=== PATIENT | female | born 1965 | race Caucasian/White ===

== ENCOUNTER 2017-02-02 08:20 | Inpatient (IN) ==
[2017-02-02] MEDS ORDERED: SODIUM CHLORIDE 0.9% 1,000 ML IV STA (09:33)
[2017-02-02 09:42] LABS: Basophils # 0.1 10*3/uL (0.0-0.2); Basophils % 0.3 % (0.0-0.8); Eosinophils % 0.1 % (0.00-10.9); Hemoglobin 10.9 GM/DL (12.0-16.0); Immature Granulocytes % 0.8 %; Immature Granulocytes Absolute 0.15 #; Lymphocytes # 2.9 10*3/uL (1.4-4.0); Lymphocytes % 15.4 % (21.3-54.2); Mean Corpuscular HGB Conc 34.1 GM/DL (32-36); Mean Corpuscular Hemoglobin 33 PG (27-34); Mean Corpuscular Volume 97.6 FL (87-102); Mean Platelet Volume 11.1 FL (9.6-12.0); Monocytes # 1.6 10*3/uL (0.11-0.8); Monocytes % 8.7 % (1.7-12.7); Neutrophils % 74.7 % (38.7-73.9); Platelet Count 432 T/CUMM (130-400); Red Blood Count 3.28 MC/CUMM (3.8-5.5); Red Cell Distribution Width 13.3 % (9.3-17.3); White Blood Count 18.8 T/CUMM (4-12)
[2017-02-02 09:59] LABS: PT Patient Result 87.7 SECS
[2017-02-02 10:01] LABS: INR 7.3
[2017-02-02 10:22] LABS: Albumin 3.2 G/DL (3.4-5.0); Bilirubin,Total 0.6 MG/DL (0.2-1.0); Magnesium 2.3 MG/DL (1.8-2.4); Osmolality,Calculated 269.4 MOS/KG (273-304); Potassium 4.1 MMOL/L (3.5-5.1); Total Protein 6.6 G/DL (6.4-8.3)
--- NOTE | 2017-02-02 10:40 | XRay Report ---
Two-view right shoulder February 02, 2017 0956 hours Indication: Fall with pain Comparison images not available Findings: Multiple overriding right-sided rib fractures. No visualized pneumothorax. The scapula is slightly rotated and slightly malpositioned with the posterior chest wall. Acromioclavicular and glenohumeral alignment is preserved. Impression: 1. Multiple right-sided rib fractures with no demonstratable pneumothorax 2. Findings concerning for scapular disassociation. PROCEDURE INTERPRETED AT [facility] DEPARTMENT OF RADIOLOGY Final Report Signed by: Sesar Vuong
--- NOTE | 2017-02-02 10:44 | XRay Report ---
Two-view right scapula February 02, 2017 at 1000 hours Comparison images not available Findings: There is increased scapulothoracic distance suggesting scapholunate disassociation. Multiple overriding right-sided rib fractures. Small subpleural hematoma. No pneumothorax. Impression: 1. Multiple right-sided rib fractures with subpleural hematoma 2. Appearance to suggest scapular disassociation. PROCEDURE INTERPRETED AT [facility] DEPARTMENT OF RADIOLOGY Final Report Signed by: Sesar Vuong
[2017-02-02] MEDS ORDERED: PHYTONADIONE 5 MG TABLET PO ONE ×2 (11:00→16:22)
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
[2017-02-02] MEDS ORDERED: ACETAMINOPHEN 325 MG TABLET PO PRN (12:12)
[2017-02-02] MEDS ORDERED: MORPHINE 2 MG/1 ML SYRINGE IV PRN (12:12)
[2017-02-02] MEDS ORDERED: ONDANSETRON 4 MG/2 ML VIAL IV PRN (12:12)
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
[2017-02-02] MEDS: SODIUM CHLORIDE 0.9% 1,000 ML IV SCH ×2 (13:40→22:04)
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
[2017-02-02 14:52] LABS: Apearance,Urine Slightly Hazy (Clear); Bilirubin,Urine Negative (Negative); Blood, Urine Negative (Negative); Glucose,Urine (UA) Negative (Negative); Hyaline Casts,Urine 30 /LPF (0-3); Ketones,Urine 20 mg/dL (Negative); Mucus,Urine Few /LPF (Occasional); Nitrite,Urine Negative (Negative); Protein,Urine 30 MG/DL; RBC,Urine 3 /HPF (0-4); Squamous Epithelial Cell,Urine Occasional /HPF (0-10); Urine Color Yellow (Yellow); Urine Specific Gravity 1.031 (1.001-1.035); Urine Urobilinogen < 2.0 EU/DL (0.2-1.0); WBC,Urine 6 /HPF (0-6)
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
[2017-02-02] MEDS ORDERED: SODIUM CHLORIDE 0.9% 250 ML IV PRN ×2 (16:22→17:27)
[2017-02-02] MEDS ORDERED: MORPHINE 2 MG/1 ML SYRINGE IV SCH (17:00)
[2017-02-02 17:12] LABS: Hematocrit 22.8 VOL% (35.7-47.0)
[2017-02-02 17:13] LABS: Hemoglobin 7.9 GM/DL (12.0-16.0)
[2017-02-02] MEDS ORDERED: NALOXONE 0.4 MG/ML VIAL IV PRN (19:15)
[2017-02-02] MEDS ORDERED: MORPHINE 2 MG/1 ML SYRINGE IV ONE (19:16)
[2017-02-02] MEDS: MORPHINE PCA 30 MG/30 ML SYRINGE IV SCH (20:00)
[2017-02-03] MEDS: MORPHINE PCA 30 MG/30 ML SYRINGE IV SCH ×3 (02:18→22:25)
[2017-02-03] MEDS ORDERED: KETOROLAC 30 MG/1 ML VIAL IV ONE ×2 (04:37→04:45)
[2017-02-03 05:23] LABS: Basophils # 0.1 10*3/uL (0.0-0.2); Basophils % 0.4 % (0.0-0.8); Eosinophils % 0.2 % (0.00-10.9); Hematocrit 29.3 VOL% (35.7-47.0); Immature Granulocytes % 0.7 %; Immature Granulocytes Absolute 0.09 #; Lymphocytes # 2.4 10*3/uL (1.4-4.0); Lymphocytes % 19.6 % (21.3-54.2); Mean Corpuscular HGB Conc 33.1 GM/DL (32-36); Mean Corpuscular Hemoglobin 31 PG (27-34); Monocytes # 1.3 10*3/uL (0.11-0.8); Monocytes % 10.4 % (1.7-12.7); Neutrophils # 8.5 10*3/uL (1.4-7.4); Neutrophils % 68.7 % (38.7-73.9); Red Blood Count 3.15 MC/CUMM (3.8-5.5); Red Cell Distribution Width 15.5 % (9.3-17.3)
[2017-02-03 05:36] LABS: White Blood Count 12.4 T/CUMM (4-12)
[2017-02-03] MEDS: SODIUM CHLORIDE 0.9% 1,000 ML IV SCH ×3 (05:36→21:11)
[2017-02-03 05:37] LABS: Hemoglobin 9.7 GM/DL (12.0-16.0); Platelet Count 228 T/CUMM (130-400)
[2017-02-03 06:05] LABS: Albumin 2.3 G/DL (3.4-5.0); Bilirubin,Total 0.6 MG/DL (0.2-1.0); Magnesium 2.2 MG/DL (1.8-2.4); Osmolality,Calculated 274.5 MOS/KG (273-304); Potassium 4.4 MMOL/L (3.5-5.1); Total Protein 4.9 G/DL (6.4-8.3)
[2017-02-03] MEDS ORDERED: FAMOTIDINE 20 MG TABLET PO ONE (07:43)
[2017-02-03] MEDS ORDERED: DIAZEPAM 5 MG TABLET PO ONE (07:43)
--- NOTE | 2017-02-03 08:55 | Hospitalist Progress Note ---
Assessment and Plan (1) Coumadin toxicity Status: Acute Assessment and plan: Impression: 1. Warfarin toxicity 2. Right chest wall hematoma 3. Recent DVT and pulmonary embolism Plan: The patient's coagulopathy has been adequately corrected. She is going to surgery later this morning. We will resume warfarin when cleared by surgery. This note was completed using [employer] voice recognition software. There may be corrugated box machine operator errors as a result. Current Visit: Yes Qualifiers: Encounter type: initial encounter Injury intent: accidental or unintentional Qualified Code(s): T45.511A - Poisoning by anticoagulants, accidental (unintentional), initial encounter Hospitalist: Subjective Interval history: Follow-up chest wall hematoma. The patient received a couple units of red cells yesterday. She says that she feels better. She is scheduled for drainage of the hematoma later today. INR has corrected down to 2 with the plasma and vitamin K. Exam - Constitutional Vitals: Period Temp Pulse Resp BP Sys/Yu Pulse Ox Last 24 Hr 97.6 F-99.0 F 79-104 12-28 83-131/42-87 93-100 Vital signs are noted above. Heart is regular with no murmur. Chest is clear. Chest wall is unchanged with displacement of the right scapula by the hematoma. She is awake and alert. Results - Labs CBC & BMP: 02/03/17 07:14 02/03/17 04:24 Lab Results: I have reviewed the past 24 hour labs Quality Measures - VTE Contraindication to Pharmacological VTE Prophylaxis: Coagulopathy
[2017-02-03] MEDS ORDERED: LIDOCAINE 1%/EPI INJ 20 ML VIAL ONE (09:19)
[2017-02-03] MEDS ORDERED: BUPIVACAINE MPF 0.25% /EPI 30 ML VIAL ONE (09:19)
[2017-02-03] MEDS ORDERED: CIPROFLOXACIN 400 MG/200 ML PREMIX IV ONE (10:17)
--- NOTE | 2017-02-03 10:45 | Operative Note ---
Date of procedure: 02/03/17 Pre-op diagnosis: Large submuscular hematoma right chest wall Post-op diagnosis: same Procedure: Evacuation of large 15 cm submuscular right chest wall hematoma Findings and technique: After informed consent was obtained patient was brought the operating room and placed in supine position. After successful induction of general anesthesia the patient was turned in a lateral position in her right chest and back were prepped and draped in usual sterile fashion. Her scapula tip was marked with a marking pen. I correlated the findings on physical exam with her chest CT to localize the site of her hematoma. I felt that her hematoma would be the most superficially located just inferior and medial to the tip of her scapula. Local anesthesia was infiltrated at this point and a small transverse incision made. I gently spread with a hemostat through the muscle fibers and entered a large hematoma cavity which consisted of non- clotted and clotted blood. Most of the blood within this hematoma was unilocular and clotted. With the suction cannula in place I removed a couple 100 cc of liquid blood. I then inserted my finger to break up clots and also used ring forceps to extract clot manually. I removed 500 cc of liquid blood and clots and did not want to try to get every last bit out because some of this and dissected within muscle and subcutaneous tissue. The mass-effect along her chest wall was greatly diminished following this. This cavity was irrigated with sterile saline. I could not identify any active bleeding. I elected not to place a drain in the space. I had also elected not to fully reverse the anticoagulation of this patient who had recently been diagnosed with pulmonary emboli. The incision in the back was closed with interrupted 3- 0 nylon suture. She appeared to tolerate the procedure well. Anesthesia: YFN, local Surgeon / Physician: Gilles Ca III. Estimated blood loss: minimal Specimens: none sent Condition: stable Disposition: PACU Results - Labs CBC & BMP: 02/03/17 07:14 02/03/17 04:24 Discharge Plan - Discharge Medications No Action FLUoxetine [PROzac] 40 mg PO DAILY oxyCODONE/ACETAMINOPHEN 5-325 [Percocet 5-325] 1 tablet PO Q6H PRN PRN Reason: Abdominal Pain Gabapentin Cap/Tab [Neurontin Cap/Tab] 100 mg PO TID Warfarin [Coumadin] 4 mg PO DAILY@1800 Pantoprazole Tab [Protonix Tab] 1 tablet PO DAILY - Follow Up or Referral - Forms/Instructions
[2017-02-03] MEDS ORDERED: PHENYLEPHRINE 1 MG/10 ML SYRINGE IV ONE (11:00)
--- NOTE | 2017-02-03 11:02 | Anesthesia Post-Op ---
Anesthesia Post OP - Post Ansesthetic Evaluation Patient seen in post op: Yes Resp: within normal limits CV: within normal limits Mental: within normal limits Temp: within normal limits [id number]: within normal limits Nausea and Vomiting: within normal limits Pain: within normal limits
[2017-02-03] MEDS ORDERED: MIDAZOLAM 2 MG/2 ML VIAL ONE (11:04)
[2017-02-03] MEDS ORDERED: PROPOFOL 200 MG/20 ML VIAL IV ONE (11:04)
[2017-02-03] MEDS ORDERED: SEVOFLURANE 1 UNIT/15 MINUTE INH ONE (11:05)
[2017-02-03] MEDS ORDERED: GLYCOPYRROLATE 0.4 MG/2 ML VIAL ONE (11:05)
[2017-02-03] MEDS ORDERED: ONDANSETRON 4 MG/2 ML VIAL ONE (11:05)
[2017-02-03] MEDS ORDERED: fentaNYL 100 MCG/2 ML VIAL ONE (11:05)
--- NOTE | 2017-02-03 14:31 | Event Note ---
The patient had about 500 mL of blood removed from her chest. She feels much better. Blood pressure is adequate. Oxygenation is adequate. Pain control is adequate. I think we can move her out to a room. Recheck INR in the a.m. Continue to monitor serial hemoglobin/hematocrit. She will need to resume her warfarin at some point when cleared by surgery.
[2017-02-03] MEDS: PANTOPRAZOLE 40 MG TABLET PO SCH (14:38)
[2017-02-03] MEDS: GABAPENTIN 100 MG CAPSULE PO SCH ×2 (14:42→20:15)
--- NOTE | 2017-02-03 16:33 | Event Note ---
She feels much better. She has much better pain control and is pleased with her result. I will follow with you but she may be ready for discharge soon from my standpoint.
[2017-02-04] MEDS: SODIUM CHLORIDE 0.9% 1,000 ML IV SCH ×3 (05:22→21:19)
[2017-02-04 05:43] LABS: INR 1.1; PT Patient Result 11.5 SECS
--- NOTE | 2017-02-04 08:27 | Event Note ---
She feels well. She is a little tachycardic. She does not have the pain and fullness that she had before and I cannot appreciate reaccumulation of her hematoma on exam. Her hematocrit has dropped down into the low 20s. With her tachycardia she may benefit from transfusion. Her INR is normalized. I am hesitant to recommend anticoagulation with her dropping hematocrit.
[2017-02-04] MEDS: GABAPENTIN 100 MG CAPSULE PO SCH ×3 (08:54→21:18)
[2017-02-04] MEDS: FLUoxetine 20 MG CAPSULE PO SCH (08:54)
[2017-02-04] MEDS: PANTOPRAZOLE 40 MG TABLET PO SCH (08:54)
[2017-02-04] MEDS: MORPHINE PCA 30 MG/30 ML SYRINGE IV SCH ×2 (10:51→17:49)
[2017-02-04] MEDS ORDERED: SODIUM CHLORIDE 0.9% 250 ML IV PRN ×2 (13:36→13:57)
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
--- NOTE | 2017-02-04 15:42 | Ultrasound Report ---
Indication: History of pulmonary emboli Duplex scan of the bilateral lower extremity veins Technique: Duplex scan of the bilateral lower extremity veins using B-mode/grayscale imaging and Doppler spectral analysis and color flow Findings: Major venous structures of the left lower extremity demonstrate a normal course and caliber. There is no evidence of deep vein thrombosis. No abnormal intrinsic echogenic lesions are demonstrated in the scanned blood vessels. Veins demonstrate good compressibility with normal color flow study and spectral analysis. There is noncompressible thrombus within the right popliteal vein, which is small and short segment. Otherwise, within the right lower extremity, the major venous structures demonstrated normal course and caliber with normal compressibility, color flow and spectral analysis. Otherwise, no abnormal intrinsic echogenic lesions are demonstrated in the scanned blood vessels. Impression: Short segment noncompressible thrombus within the right popliteal vein. Unremarkable duplex imaging of the left lower extremity veins. No evidence of DVT PROCEDURE INTERPRETED AT [facility] DEPARTMENT OF RADIOLOGY Final Report Signed by: Antione Madrid
--- NOTE | 2017-02-04 16:10 | Physician Query Form ---
CLICK EDIT DOCUMENT TO SELECT QUERY ANSWER --> OK --> SIGN Yvonne Baez RN Clinical Quality Director W) [phone] (f) [phone] [email or web address] PROVIDERS: Make your selection(s) from the choices in EACH section by typing an "x" and enter comments in the comment section. Please use your independent medical judgment in providing your response. This request does not imply that any particular answer is desired or expected. CLINICAL INDICATORS: (Providers should not edit this section) Based on documentation of "Acute coumadin toxicity" INR on admission of 7.3. "Acute hematoma of right chest wall" Surgical evacuation of hematoma to right chest wall performed "removed 500 cc of liquid blood and clots and did not want to try to get every last bit out because some of this and dissected within muscle and subcutaneous tissue" Transfused 2units PRBC, 1unit FFP Based on the above, could you clarify the appropriate diagnosis, if significant , that supports the above abnormalities and additional evaluation, monitoring, and/or treatment rendered: ( x) Bleeding disorder due to extrinsic circulating anticoagulants ( ) Bleeding disorder NOT due to extrinsic circulating anticoagulants ( ) Other, please specify: ( ) Clinically unable to determine COMMENTS: PLEASE ALSO DOCUMENT RESPONSE IN PROGRESS NOTES AND/OR DISCHARGE SUMMARY Use of terms such as suspected, likely, or probable (associated with a specific diagnosis that is being evaluated, monitored, or treated as if it exists) are acceptable and can be restated in the discharge summary if not ruled out. MTDD
--- NOTE | 2017-02-04 16:13 | Physician Query Form ---
CLICK EDIT DOCUMENT TO SELECT QUERY ANSWER --> OK --> SIGN Yvonne Baez RN Clinical Assigner W) [phone] (f) [phone] [email or web address] PROVIDERS: Make your selection(s) from the choices in EACH section by typing an "x" and enter comments in the comment section. Please use your independent medical judgment in providing your response. This request does not imply that any particular answer is desired or expected. CLINICAL INDICATORS: (Providers should not edit this section) Based on documentation of "Acute coumadin toxicity" INR on admission of 7.3. HH of 7.9/22.8. "Acute hematoma of right chest wall" Surgical evacuation of hematoma to right chest wall performed "removed 500 cc of liquid blood and clots " Transfused 2 units PRBC and 1 unit FFP Based on the above, could you clarify which of the following conditions you are evaluating, treating, and/or monitoring? ( x) Blood loss anemia (x ) acute ( ) chronic ( ) acute on chronic ( ) Acute blood loss anemia on baseline chronic anemia ( ) Acute blood loss anemia as a complication of a procedure ( ) Hemolytic anemia ( ) immune ( ) non-immune - please specify cause: ( ) Anemia due to other condition, please specify: ( ) Clinically unable to determine COMMENTS: PLEASE ALSO DOCUMENT RESPONSE IN PROGRESS NOTES AND/OR DISCHARGE SUMMARY Use of terms such as suspected, likely, or probable (associated with a specific diagnosis that is being evaluated, monitored, or treated as if it exists) are acceptable and can be restated in the discharge summary if not ruled out. MTDD
--- NOTE | 2017-02-04 16:26 | IR History and Physical Update ---
IR Pre-Procedure - History and Physical H&P was reviewed, the patient examined and there: are no changes in the patients condition since last H&P was completed. Reason for procedure:: h/o PE and small right popliteal DVT with bleeding (cant anticoagulate now) - Dictation Physical: refer to H&P completed by admitting physician - Physical Exam Vital Signs: Last Vital Signs Temp 99 F 02/04/17 14:45 Pulse 106 H 02/04/17 15:30 Resp 18 02/04/17 15:30 BP 116/77 02/04/17 15:30 Pulse Ox 97 02/04/17 15:30 Mental Status: alert and oriented Heart: regular rate and rhythm Lung: clear to auscultation Abdomen: within normal limits - Sedation IR anesthesia plan for sedation: none ASA Class: II Airway Assessment: Class II: Soft palate, uvula, fauces visible - Risks Risks: Procedures explained. Risks discussed include, but not limited to, the following:[ bleeding, injury to vessels and adjacent structures, Filter malposition, need to remove filter in the future] All questions answered. The following alternatives were discussed:[ none] Risks and benefits discussed with: patient Consent obtained from: patient Assessment and Plan - Time spent with patient Time spent with patient: Less than 30 minutes
--- NOTE | 2017-02-04 17:54 | Event Note ---
I had a brief discussion with the patient about the pros and cons of IVC filter placement, risks of the procedure, her non-NPO status and whether or not it needed to be done this afternoon (emergently) or next week. After that discussion, I felt like the patient was nervous/uncomfortable about waiting over the weekend. Therefore, I talked with the patient's nurse and made the decision to quickly get the IR team ready to get this procedure done today - with the hope of putting the patient at ease about her DVT/PE issues. Reportedly after leaving the patient's room, however, the patient became anxious and refused the procedure. I am not sure what caused this, but I did personally talk with the patient about it. This patient can have the IVC filter placement Tuesday or any day next week. It does not need to be done over the weekend or emergently. I also discussed this with the patient's nurse and the attending, Dr. Cabezas.
[2017-02-04 21:22] LABS: Hematocrit 27.7 VOL% (35.7-47.0); Hemoglobin 9.5 GM/DL (12.0-16.0)
[2017-02-05 03:48] LABS: Basophils % 0.5 % (0.0-0.8); Eosinophils # 0.5 10*3/uL (0.0-0.87); Eosinophils % 6.6 % (0.00-10.9); Hematocrit 27.9 VOL% (35.7-47.0); Hemoglobin 9.4 GM/DL (12.0-16.0); Immature Granulocytes % 0.3 %; Immature Granulocytes Absolute 0.02 #; Lymphocytes # 2.1 10*3/uL (1.4-4.0); Lymphocytes % 27.4 % (21.3-54.2); Mean Corpuscular HGB Conc 33.7 GM/DL (32-36); Mean Corpuscular Hemoglobin 31 PG (27-34); Mean Corpuscular Volume 90.9 FL (87-102); Monocytes # 0.8 10*3/uL (0.11-0.8); Neutrophils # 4.2 10*3/uL (1.4-7.4); Neutrophils % 55.2 % (38.7-73.9); Platelet Count 222 T/CUMM (130-400); Red Blood Count 3.07 MC/CUMM (3.8-5.5); Red Cell Distribution Width 15.6 % (9.3-17.3); White Blood Count 7.6 T/CUMM (4-12)
[2017-02-05 04:03] LABS: PT Patient Result 10.4 SECS
[2017-02-05 04:24] LABS: Calcium 7.8 MG/DL (8.5-10.1)
[2017-02-05 04:25] LABS: Potassium 3.5 MMOL/L (3.5-5.1)
[2017-02-05] MEDS: SODIUM CHLORIDE 0.9% 1,000 ML IV SCH (06:43)
[2017-02-05] MEDS: MORPHINE PCA 30 MG/30 ML SYRINGE IV SCH (06:54)
--- NOTE | 2017-02-05 08:19 | Event Note ---
She feels well. She has no signs of reaccumulation of her hematoma. She has extensive ecchymosis entire right side of her chest flank. Hematocrit is appropriate morning. He apparently discussed vena cava filter placement with interventional radiology and elected not to do this. I will leave anticoagulation up to you. I think that she had her bleed because of Coumadin toxicity. I do not know that this would have occurred if she has been more appropriate INR. I would be okay if you want to try another attempt at anticoagulation.
[2017-02-05] MEDS: GABAPENTIN 100 MG CAPSULE PO SCH ×3 (08:51→21:31)
[2017-02-05] MEDS: FLUoxetine 20 MG CAPSULE PO SCH (08:52)
[2017-02-05] MEDS: PANTOPRAZOLE 40 MG TABLET PO SCH (08:52)
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
[2017-02-05] MEDS ORDERED: NICOTINE 21 MG/24 HR PATCH TRANSDERM PRN (11:31)
[2017-02-05] MEDS: APIXABAN 5 MG TABLET PO SCH ×2 (12:13→21:31)
[2017-02-05] MEDS: HYDROmorphone 2 MG/1 ML VIAL IV PRN ×3 (12:57→22:38)
[2017-02-06 03:36] LABS: Hematocrit 29.8 VOL% (35.7-47.0); Hemoglobin 10.3 GM/DL (12.0-16.0)
[2017-02-06] MEDS: HYDROmorphone 2 MG/1 ML VIAL IV PRN (05:30)
[2017-02-06] MEDS: GABAPENTIN 100 MG CAPSULE PO SCH (08:32)
[2017-02-06] MEDS: PANTOPRAZOLE 40 MG TABLET PO SCH (08:32)
[2017-02-06] MEDS: FLUoxetine 20 MG CAPSULE PO SCH (08:32)
[2017-02-06] MEDS: APIXABAN 5 MG TABLET PO SCH (08:33)
[2017-02-06 08:35] VITALS: BP 125/81
--- NOTE | 2017-02-06 10:31 | Event Note ---
I saw the patient earlier this morning. She had no complaints of shoulder pain or feeling like her hematoma had recurred. She is doing well and I will leave discharge and anticoagulation up to the medical service. I need to see her back in my clinic in the next week or so for suture removal.
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
== END 2017-02-06 12:15 | disposition home or self-care (01) | DRG 988 ==
LOC: N.ED 08:20 → SUATTDRO 11:02 → N.EDINP 11:02 → N.CC 11:27 → N.3E 02-03 19:25
PROVIDERS: ADMIT Internal Medicine Geriatric Medicine; ATTEND Family Medicine

== ENCOUNTER 2020-01-28 18:03 | Observation (INO) ==
[2020-01-28] MEDS ORDERED: HYDROmorphone 2 MG/1 ML VIAL IV STA ×2 (18:19→18:26)
[2020-01-28] MEDS ORDERED: HYDROmorphone 2 MG/1 ML VIAL ONE (18:19)
[2020-01-28] MEDS ORDERED: LACTATED RINGERS 1,000 ML IV STA (18:26)
[2020-01-28] MEDS ORDERED: DIPHTHERIA/TETANUS ADULT VACCINE 0.5 ML SYRINGE IM ONE (18:26)
[2020-01-28] MEDS ORDERED: ONDANSETRON 4 MG/2 ML VIAL IV STA (18:26)
[2020-01-28 18:39] LABS: Basophils # 0.1 10*3/uL (0.0-0.2); Basophils % 0.6 % (0.0-0.8); Eosinophils # 0.4 10*3/uL (0.0-0.87); Eosinophils % 2.9 % (0.00-10.9); Hematocrit 41.2 VOL% (35.7-47.0); Hemoglobin 13.6 GM/DL (12.0-16.0); Immature Granulocytes % 0.6 %; Immature Granulocytes Absolute 0.09 #; Lymphocytes # 6.6 10*3/uL (1.4-4.0); Lymphocytes % 44.1 % (21.3-54.2); Mean Corpuscular Volume 98.1 FL (87-102); Mean Platelet Volume 11.1 FL (9.6-12.0); Monocytes % 5.7 % (1.7-12.7); Neutrophils % 46.1 % (38.7-73.9); Platelet Count 269 T/CUMM (130-400); Red Cell Distribution Width 12.1 % (9.3-17.3); White Blood Count 15.1 T/CUMM (4-12)
[2020-01-28] MEDS ORDERED: DIPH/TET/ACEL PERT BOOSTER VACCINE 0.5 ML VIAL IM ONE (18:48)
[2020-01-28 18:54] LABS: Alanine Aminotransferase 23 U/L (13-56); Albumin 3.9 G/DL (3.4-5.0); Alkaline Phosphatase 76 U/L (45-117); Amylase 43 U/L (25-115); Aspartate Amino Transferase 23 U/L (0-37); Blood Urea Nitrogen 8 MG/DL (7-18); Calcium 9.5 MG/DL (8.5-10.1); Estimated Glom Filtration Rate 73 ML/MIN; Glucose 109 MG/DL (74-106); Osmolality,Calculated 275.5 MOS/KG (273-304); Total Protein 7.1 G/DL (6.4-8.3)
[2020-01-28] MEDS ORDERED: ONDANSETRON 4 MG/2 ML VIAL IV PRN (19:00)
[2020-01-28] MEDS ORDERED: ACETAMINOPHEN 325 MG TABLET PO PRN (19:00)
[2020-01-28 19:07] LABS: PT Patient Result 11.1 SECS (9.8-11.9); Partial Thromboplastin Time 23.9 SECS (23.9-33.8)
[2020-01-28 19:16] LABS: Eosinophils 5 % (0-10); Hypochromasia 2+; Lymphocytes 41 % (20-55); Macrocytosis 1+; Platelet Estimate Normal; Reactive Lymphocytes 1+; Segmented Neutrophils 49 % (50-85); Total Cells Counted 100
[2020-01-28 19:16] LABS: Apearance,Urine CLEAR (Clear); Bilirubin,Urine Negative (Negative); Blood, Urine Negative (Negative); Glucose,Urine (UA) Negative (Negative); Ketones,Urine Negative (Negative); Nitrite,Urine Negative (Negative); Protein,Urine Negative; RBC,Urine 2 /HPF (0-4); Urine Color Straw (Yellow); Urine Specific Gravity 1.025 (1.001-1.035); Urine Urobilinogen < 2.0 EU/DL (0.2-1.0); WBC,Urine <1 /HPF (0-6)
[2020-01-28 19:29] LABS: Barbiturates Screen,Urine Negative (Negative); Benzodiazepines Screen,Urine Negative (Negative); Cannabinoid Screen,Urine Negative (Negative); Opiate Screen,Urine Positive (Negative); Phencyclidine Screen,Urine Negative (Negative)
[2020-01-28] MEDS: MORPHINE 4 MG/1 ML VIAL IV PRN ×2 (19:45→23:46)
[2020-01-28] MEDS: DEXTROSE 5% NACL 0.45% 1,000 ML IV SCH (22:20)
[2020-01-29] MEDS ORDERED: NALOXONE 0.4 MG/ML VIAL IV PRN (00:26)
[2020-01-29] MEDS: HYDROmorphone PCA 30 MG/30 ML SYRINGE IV SCH (00:51)
[2020-01-29 00:55] LABS: Basophils # 0.1 10*3/uL (0.0-0.2); Basophils % 0.3 % (0.0-0.8); Eosinophils # 0.1 10*3/uL (0.0-0.87); Eosinophils % 0.6 % (0.00-10.9); Hematocrit 37.5 VOL% (35.7-47.0); Immature Granulocytes % 0.5 %; Immature Granulocytes Absolute 0.08 #; Lymphocytes # 4.1 10*3/uL (1.4-4.0); Lymphocytes % 26.2 % (21.3-54.2); Mean Corpuscular HGB Conc 34.7 GM/DL (32-36); Mean Corpuscular Volume 94.7 FL (87-102); Mean Platelet Volume 9.9 FL (9.6-12.0); Monocytes % 7.9 % (1.7-12.7); Neutrophils % 64.5 % (38.7-73.9); Platelet Count 305 T/CUMM (130-400); Red Blood Count 3.96 MC/CUMM (3.8-5.5); Red Cell Distribution Width 11.9 % (9.3-17.3); White Blood Count 15.6 T/CUMM (4-12)
[2020-01-29 01:16] LABS: Calcium 8.9 MG/DL (8.5-10.1); Osmolality,Calculated 275.5 MOS/KG (273-304)
[2020-01-29 02:04] LABS: Platelet Estimate Normal
[2020-01-29] MEDS: DEXTROSE 5% NACL 0.45% 1,000 ML IV SCH (06:39)
[2020-01-29] MEDS ORDERED: CLINDAMYCIN INJ 900 MG in PREMIX 1 EACH IV ONE (09:02)
[2020-01-29] MEDS ORDERED: LIDOCAINE 1% 5 ML VIAL ONE (09:31)
[2020-01-29] MEDS ORDERED: DEXAMETHASONE 4 MG/1 ML VIAL ONE ×2 (09:31→12:55)
[2020-01-29] MEDS ORDERED: ROPIVACAINE 0.5% 30 ML VIAL ONE ×2 (09:31→10:24)
[2020-01-29] MEDS ORDERED: BACITRACIN OINT 0.9 GM PACK TOP ONE (09:44)
[2020-01-29] MEDS: PANTOPRAZOLE 40 MG VIAL IV SCH (09:55)
[2020-01-29] MEDS ORDERED: ALBUTEROL INHALER 18 GM INH ONE (11:40)
[2020-01-29] MEDS ORDERED: MAGNESIUM HYDROXIDE SUSP 30 ML UDCUP PO PRN (11:59)
[2020-01-29] MEDS ORDERED: propofoL 200 MG/20 ML VIAL IV ONE (12:54)
[2020-01-29] MEDS ORDERED: LIDOCAINE 2% 5 ML VIAL ONE (12:54)
[2020-01-29] MEDS ORDERED: SEVOFLURANE 1 UNIT/15 MINUTE INH ONE (12:54)
[2020-01-29] MEDS ORDERED: MIDAZOLAM 2 MG/2 ML VIAL ONE (12:54)
[2020-01-29] MEDS ORDERED: GLYCOPYRROLATE 0.4 MG/2 ML VIAL ONE (12:55)
[2020-01-29] MEDS ORDERED: fentaNYL 100 MCG/2 ML VIAL ONE (12:55)
[2020-01-29] MEDS ORDERED: ONDANSETRON 4 MG/2 ML VIAL ONE (12:55)
[2020-01-29] MEDS ORDERED: ROCURONIUM 100 MG/10 ML VIAL IV ONE (12:55)
[2020-01-29] MEDS ORDERED: SUCCINYLCHOLINE 200 MG/10 ML VIAL ONE (12:55)
[2020-01-29] MEDS ORDERED: PHENYLEPHRINE 1 MG/10 ML SYRINGE IV ONE (12:55)
[2020-01-29] MEDS: LEVOFLOXACIN INJ 500 MG in PREMIX 1 EACH IV SCH (14:30)
[2020-01-29] MEDS: metroNIDAZOLE INJ 500 MG in PREMIX 1 EACH IV SCH ×2 (15:49→23:16)
[2020-01-29] MEDS: LACTATED RINGERS 1,000 ML IV SCH (17:39)
[2020-01-29] MEDS: CLINDAMYCIN INJ 900 MG in PREMIX 1 EACH IV SCH (17:40)
[2020-01-29] MEDS ORDERED: PHENOL 1.4% THROAT SPRAY 177 ML BOTTLE PO PRN (18:46)
[2020-01-29] MEDS: APIXABAN 2.5 MG TABLET PO SCH (21:29)
[2020-01-30] MEDS: CLINDAMYCIN INJ 900 MG in PREMIX 1 EACH IV SCH (02:12)
[2020-01-30] MEDS: DEXTROSE 5% NACL 0.45% 1,000 ML IV SCH (04:26)
[2020-01-30] MEDS: HYDROmorphone PCA 30 MG/30 ML SYRINGE IV SCH (04:27)
[2020-01-30 05:44] LABS: Basophils % 0.3 % (0.0-0.8); Eosinophils % 0.2 % (0.00-10.9); Hematocrit 34.8 VOL% (35.7-47.0); Hemoglobin 11.8 GM/DL (12.0-16.0); Immature Granulocytes % 0.7 %; Immature Granulocytes Absolute 0.09 #; Lymphocytes # 2.9 10*3/uL (1.4-4.0); Lymphocytes % 21.3 % (21.3-54.2); Mean Corpuscular HGB Conc 33.9 GM/DL (32-36); Mean Corpuscular Volume 97.5 FL (87-102); Mean Platelet Volume 10.9 FL (9.6-12.0); Monocytes % 9.7 % (1.7-12.7); Neutrophils % 67.8 % (38.7-73.9); Platelet Count 262 T/CUMM (130-400); Red Blood Count 3.57 MC/CUMM (3.8-5.5); Red Cell Distribution Width 12.1 % (9.3-17.3); White Blood Count 13.8 T/CUMM (4-12)
[2020-01-30 06:09] LABS: Calcium 8.8 MG/DL (8.5-10.1); Osmolality,Calculated 276.3 MOS/KG (273-304)
[2020-01-30] MEDS: metroNIDAZOLE INJ 500 MG in PREMIX 1 EACH IV SCH (06:47)
[2020-01-30] MEDS: PANTOPRAZOLE 40 MG VIAL IV SCH (09:49)
[2020-01-30] MEDS: APIXABAN 2.5 MG TABLET PO SCH (09:49)
[2020-01-30] MEDS: LACTATED RINGERS 1,000 ML IV SCH (11:13)
[2020-01-30 12:02] VITALS: BP 115/78
[2020-01-30] MEDS: LEVOFLOXACIN INJ 500 MG in PREMIX 1 EACH IV SCH (13:38)
== END 2020-01-30 13:35 | disposition home or self-care (01) ==
LOC: EDUNIT# → EDBD → N.ED 18:03 → N.EDINP 18:03 → N.3E 19:52
PROVIDERS: ADMIT Student in an Organized Health Care Education/Training Program; ATTEND Student in an Organized Health Care Education/Training Program

== ENCOUNTER 2021-01-10 10:41 | Inpatient (IN) ==
[2021-01-10 11:32] LABS: Basophils # 0.1 10*3/uL (0.0-0.2); Basophils % 0.9 % (0.0-0.8); Eosinophils % 7.9 % (0.00-10.9); Hematocrit 45.1 VOL% (35.7-47.0); Hemoglobin 14.7 GM/DL (12.0-16.0); Immature Granulocytes % 0.5 %; Immature Granulocytes Absolute 0.06 #; Lymphocytes # 2.4 10*3/uL (1.4-4.0); Mean Corpuscular HGB Conc 32.6 GM/DL (32-36); Mean Corpuscular Volume 98.3 FL (87-102); Mean Platelet Volume 9.6 FL (9.6-12.0); Monocytes % 6.2 % (1.7-12.7); Neutrophils % 65.5 % (38.7-73.9); Platelet Count 372 T/CUMM (130-400); Red Blood Count 4.59 MC/CUMM (3.8-5.5); Red Cell Distribution Width 12.7 % (9.3-17.3); White Blood Count 12.7 T/CUMM (4-12)
[2021-01-10 11:45] LABS: PT Patient Result 10.9 SECS (10.5-12.0); Partial Thromboplastin Time 25.4 SECS (23.9-33.8)
[2021-01-10] MEDS ORDERED: methylPREDNISolone SOD SUC 40 MG/1 ML VIAL IV STA (11:58)
[2021-01-10] MEDS ORDERED: ALBUTEROL 2.5 MG/3 ML NEB RESP TX STA ×3 (11:58→14:22)
[2021-01-10 12:01] LABS: Albumin 4.3 G/DL (3.4-5.0); Bilirubin,Total 0.7 MG/DL (0.20-1.00); Calcium 9.9 MG/DL (8.5-10.1); Osmolality,Calculated 277.4 MOS/KG (273-304); Potassium 3.6 MMOL/L (3.5-5.1); Total Protein 7.8 G/DL (6.4-8.2)
[2021-01-10] MEDS ORDERED: ALBUTEROL 2.5 MG/3 ML NEB RESP TX ONE (12:01)
[2021-01-10] MEDS ORDERED: AZITHROMYCIN INJ 500 MG in SODIUM CHLORIDE 0.9% 250 ML IV STA (12:18)
[2021-01-10] MEDS ORDERED: cefTRIAXone 1,000 MG in SODIUM CHLORIDE 0.9% 100 ML IV STA (12:18)
[2021-01-10] MEDS ORDERED: methylPREDNISolone SOD SUC 125 MG/2 ML VIAL ONE (12:29)
[2021-01-10] MEDS ORDERED: ONDANSETRON 4 MG/2 ML VIAL IV PRN (15:11)
[2021-01-10] MEDS ORDERED: ACETAMINOPHEN 325 MG TABLET PO PRN (15:11)
[2021-01-10] MEDS ORDERED: ALBUTEROL/IPRATROPIUM 3 ML NEB RESP TX PRN (18:44)
[2021-01-10] MEDS: ALBUTEROL/IPRATROPIUM 3 ML NEB RESP TX SCH (19:09)
[2021-01-10] MEDS: methylPREDNISolone SOD SUC 40 MG/1 ML VIAL IV SCH (21:37)
[2021-01-10] MEDS: DOCUSATE SODIUM 100 MG CAPSULE PO SCH (21:44)
[2021-01-10] MEDS: APIXABAN 5 MG TABLET PO SCH (22:24)
[2021-01-10] MEDS: traZODone 50 MG TABLET PO SCH ×2 (22:24→22:42)
[2021-01-11] MEDS: ALBUTEROL/IPRATROPIUM 3 ML NEB RESP TX SCH ×4 (00:06→19:40)
[2021-01-11] MEDS: methylPREDNISolone SOD SUC 40 MG/1 ML VIAL IV SCH ×3 (05:31→20:19)
[2021-01-11] MEDS: MONTELUKAST 10 MG TABLET PO SCH (08:18)
[2021-01-11] MEDS: DOCUSATE SODIUM 100 MG CAPSULE PO SCH ×2 (08:18→20:18)
[2021-01-11] MEDS: PANTOPRAZOLE 40 MG TABLET PO SCH (08:18)
[2021-01-11] MEDS: APIXABAN 5 MG TABLET PO SCH ×2 (08:18→20:18)
[2021-01-11] MEDS: cefTRIAXone 1,000 MG in SODIUM CHLORIDE 0.9% 100 ML IV SCH (13:16)
[2021-01-11] MEDS: AZITHROMYCIN INJ 500 MG in SODIUM CHLORIDE 0.9% 250 ML IV SCH (16:00)
[2021-01-11] MEDS: traZODone 50 MG TABLET PO SCH (20:18)
[2021-01-12] MEDS: ALBUTEROL/IPRATROPIUM 3 ML NEB RESP TX SCH ×4 (00:23→20:22)
[2021-01-12] MEDS: methylPREDNISolone SOD SUC 40 MG/1 ML VIAL IV SCH ×3 (05:32→21:46)
[2021-01-12 06:40] LABS: Basophils % 0.2 % (0.0-0.8); Hematocrit 38.8 VOL% (35.7-47.0); Hemoglobin 12.8 GM/DL (12.0-16.0); Immature Granulocytes % 1.2 %; Immature Granulocytes Absolute 0.28 #; Lymphocytes # 2.2 10*3/uL (1.4-4.0); Lymphocytes % 9.1 % (21.3-54.2); Mean Corpuscular Volume 97.5 FL (87-102); Monocytes % 5.1 % (1.7-12.7); Neutrophils % 84.4 % (38.7-73.9); Platelet Count 346 T/CUMM (130-400); Red Blood Count 3.98 MC/CUMM (3.8-5.5); Red Cell Distribution Width 12.8 % (9.3-17.3); White Blood Count 24.3 T/CUMM (4-12)
[2021-01-12 06:59] LABS: Calcium 9.1 MG/DL (8.5-10.1); Osmolality,Calculated 285.3 MOS/KG (273-304); Potassium 3.8 MMOL/L (3.5-5.1)
[2021-01-12 07:10] LABS: Hypochromasia 1+; Lymphocytes 14 % (20-55); Microcytosis 1+; Platelet Estimate Adequate; Segmented Neutrophils 82 % (50-85); Total Cells Counted 100
[2021-01-12] MEDS ORDERED: DEXTROSE 50% 25 GM/50 ML VIAL IV PRN (08:03)
[2021-01-12] MEDS ORDERED: GLUCAGON 1 MG VIAL IM PRN (08:03)
[2021-01-12] MEDS: MONTELUKAST 10 MG TABLET PO SCH (09:19)
[2021-01-12] MEDS: APIXABAN 5 MG TABLET PO SCH ×2 (09:19→21:44)
[2021-01-12] MEDS: DOCUSATE SODIUM 100 MG CAPSULE PO SCH ×2 (09:19→21:46)
[2021-01-12] MEDS: PANTOPRAZOLE 40 MG TABLET PO SCH (09:19)
[2021-01-12] MEDS ORDERED: guaiFENesin 200 MG/10 ML UDCUP PO PRN (12:58)
[2021-01-12] MEDS: cefTRIAXone 1,000 MG in SODIUM CHLORIDE 0.9% 100 ML IV SCH (13:16)
[2021-01-12] MEDS: AZITHROMYCIN INJ 500 MG in SODIUM CHLORIDE 0.9% 250 ML IV SCH (15:04)
[2021-01-12] MEDS: BUDESONIDE/FORMOTEROL 160-4.5 INHALER 6 GM INH SCH ×2 (15:05→21:46)
[2021-01-12] MEDS: BENZONATATE 100 MG CAPSULE PO SCH ×2 (15:38→21:44)
[2021-01-12] MEDS: INSULIN LISPRO 100 UNIT/ML SUBCUT SCH ×2 (16:26→21:54)
[2021-01-12] MEDS: traZODone 50 MG TABLET PO SCH ×3 (21:44→21:57)
[2021-01-13] MEDS: ALBUTEROL/IPRATROPIUM 3 ML NEB RESP TX SCH ×2 (02:03→07:20)
[2021-01-13] MEDS: methylPREDNISolone SOD SUC 40 MG/1 ML VIAL IV SCH (05:17)
[2021-01-13 05:37] LABS: Basophils % 0.2 % (0.0-0.8); Hematocrit 38.2 VOL% (35.7-47.0); Hemoglobin 12.2 GM/DL (12.0-16.0); Immature Granulocytes % 1.9 %; Immature Granulocytes Absolute 0.34 #; Lymphocytes % 11.6 % (21.3-54.2); Mean Corpuscular HGB Conc 31.9 GM/DL (32-36); Mean Corpuscular Volume 99.2 FL (87-102); Monocytes % 4.7 % (1.7-12.7); Neutrophils % 81.6 % (38.7-73.9); Platelet Count 332 T/CUMM (130-400); Red Blood Count 3.85 MC/CUMM (3.8-5.5); Red Cell Distribution Width 13.1 % (9.3-17.3); White Blood Count 17.5 T/CUMM (4-12)
[2021-01-13 06:05] LABS: Albumin 3.4 G/DL (3.4-5.0); Bilirubin,Total 0.4 MG/DL (0.20-1.00); Calcium 9.1 MG/DL (8.5-10.1); Osmolality,Calculated 280.4 MOS/KG (273-304); Potassium 4.4 MMOL/L (3.5-5.1); Total Protein 6.6 G/DL (6.4-8.2)
[2021-01-13] MEDS: INSULIN LISPRO 100 UNIT/ML SUBCUT SCH ×2 (07:30→11:25)
[2021-01-13 08:52] VITALS: BP 122/67
[2021-01-13] MEDS: BENZONATATE 100 MG CAPSULE PO SCH (09:04)
[2021-01-13] MEDS: PANTOPRAZOLE 40 MG TABLET PO SCH (09:04)
[2021-01-13] MEDS: DOCUSATE SODIUM 100 MG CAPSULE PO SCH (09:04)
[2021-01-13] MEDS: BUDESONIDE/FORMOTEROL 160-4.5 INHALER 6 GM INH SCH (09:04)
[2021-01-13] MEDS: MONTELUKAST 10 MG TABLET PO SCH (09:04)
[2021-01-13] MEDS: APIXABAN 5 MG TABLET PO SCH (09:05)
== END 2021-01-13 12:50 | disposition home or self-care (01) | DRG 190 ==
LOC: N.ED 10:41 → N.EDINP 10:41 → N.OB 17:26 → N.ED 17:26 → N.OB 17:30
PROVIDERS: ADMIT Family Medicine; ATTEND Family Medicine

== ENCOUNTER 2022-06-02 11:43 | Observation (INO) ==
[2022-06-02 12:26] LABS: Basophils # 0.1 10*3/uL (0.0-0.2); Eosinophils # 1.5 10*3/uL (0.0-0.87); Eosinophils % 13.8 % (0.00-10.9); Hematocrit 41.1 VOL% (35.7-47.0); Hemoglobin 13.7 GM/DL (12.0-16.0); Immature Granulocytes % 0.4 %; Immature Granulocytes Absolute 0.04 #; Lymphocytes # 2.9 10*3/uL (1.4-4.0); Mean Corpuscular HGB Conc 33.3 GM/DL (32-36); Mean Corpuscular Volume 95.4 FL (87-102); Mean Platelet Volume 10.1 FL (9.6-12.0); Monocytes # 0.7 10*3/uL (0.11-0.8); Monocytes % 6.9 % (1.7-12.7); Neutrophils % 50.9 % (38.7-73.9); Platelet Count 372 T/CUMM (130-400); Red Blood Count 4.31 MC/CUMM (3.8-5.5); Red Cell Distribution Width 13.2 % (9.3-17.3); White Blood Count 10.7 T/CUMM (4-12)
[2022-06-02 12:32] LABS: INR 0.9; PT Patient Result 10.3 SECS (10.1-12.1)
[2022-06-02 12:33] LABS: Albumin 4.3 G/DL (3.4-5.0); Bilirubin,Total 0.5 MG/DL (0.20-1.00); Calcium 9.7 MG/DL (8.5-10.1); Osmolality,Calculated 277.4 MOS/KG (273-304); Potassium 3.9 MMOL/L (3.5-5.1); Total Protein 7.5 G/DL (6.4-8.2)
[2022-06-02 12:52] LABS: Anisocytosis Slight; Band Neutrophils 1 % (0-10); Eosinophils 13 % (0-10); Lymphocytes 30 % (20-55); Platelet Estimate Normal; Total Cells Counted 100
[2022-06-02] MEDS ORDERED: ALBUTEROL NEB SOLN 5 MG/ML 20 ML/BOTTLE CONT NEB STA (16:48)
[2022-06-02] MEDS ORDERED: methylPREDNISolone SOD SUC 125 MG/2 ML VIAL IV STA (16:48)
[2022-06-02] MEDS ORDERED: LORazepam 1 MG TABLET PO STA ×2 (16:49→17:31)
[2022-06-02] MEDS ORDERED: ALBUTEROL/IPRATROPIUM 3 ML NEB RESP TX ONE (16:55)
[2022-06-02] MEDS ORDERED: ALBUTEROL 2.5 MG/3 ML NEB RESP TX ONE (16:56)
[2022-06-02] MEDS ORDERED: SODIUM CHLORIDE 0.9% 1,000 ML IV STA (18:17)
[2022-06-02] MEDS ORDERED: ACETAMINOPHEN 325 MG TABLET PO PRN (18:46)
[2022-06-02] MEDS ORDERED: ONDANSETRON 4 MG/2 ML VIAL IV PRN (18:46)
[2022-06-02] MEDS ORDERED: cefTRIAXone 1,000 MG in SODIUM CHLORIDE 0.9% 100 ML IV STA (18:49)
[2022-06-02] MEDS: DOCUSATE SODIUM 100 MG CAPSULE PO SCH (21:33)
[2022-06-02] MEDS: ALBUTEROL 2.5 MG/3 ML NEB RESP TX PRN (21:42)
[2022-06-02] MEDS: methylPREDNISolone SOD SUC 125 MG/2 ML VIAL IV SCH (23:34)
[2022-06-03] MEDS: ALBUTEROL 2.5 MG/3 ML NEB RESP TX PRN ×2 (03:15→08:17)
[2022-06-03 05:43] LABS: Basophils % 0.4 % (0.0-0.8); Hematocrit 39.5 VOL% (35.7-47.0); Hemoglobin 12.8 GM/DL (12.0-16.0); Immature Granulocytes Absolute 0.08 #; Lymphocytes # 1.4 10*3/uL (1.4-4.0); Lymphocytes % 17.4 % (21.3-54.2); Mean Corpuscular HGB Conc 32.4 GM/DL (32-36); Mean Corpuscular Volume 95.4 FL (87-102); Mean Platelet Volume 9.8 FL (9.6-12.0); Monocytes # 0.1 10*3/uL (0.11-0.8); Monocytes % 1.6 % (1.7-12.7); Neutrophils % 79.6 % (38.7-73.9); Platelet Count 336 T/CUMM (130-400); Red Blood Count 4.14 MC/CUMM (3.8-5.5); Red Cell Distribution Width 13.2 % (9.3-17.3); White Blood Count 8.2 T/CUMM (4-12)
[2022-06-03] MEDS: methylPREDNISolone SOD SUC 125 MG/2 ML VIAL IV SCH ×3 (05:59→21:56)
[2022-06-03 06:10] LABS: Calcium 9.9 MG/DL (8.5-10.1); Osmolality,Calculated 284.1 MOS/KG (273-304); Potassium 3.7 MMOL/L (3.5-5.1)
[2022-06-03] MEDS ORDERED: hydrALAZINE 20 MG/1 ML VIAL IV PRN (08:54)
[2022-06-03] MEDS: DOCUSATE SODIUM 100 MG CAPSULE PO SCH ×2 (09:26→21:55)
[2022-06-03] MEDS: PANTOPRAZOLE 40 MG TABLET PO SCH (09:26)
[2022-06-03] MEDS: ALBUTEROL/IPRATROPIUM 3 ML NEB RESP TX SCH ×4 (11:20→22:05)
[2022-06-03] MEDS: cefTRIAXone 1,000 MG in SODIUM CHLORIDE 0.9% 100 ML IV SCH (11:23)
[2022-06-03] MEDS: AZITHROMYCIN INJ 500 MG in SODIUM CHLORIDE 0.9% 250 ML IV SCH (11:24)
[2022-06-03] MEDS: APIXABAN 2.5 MG TABLET PO SCH ×2 (11:24→21:55)
[2022-06-03] MEDS ORDERED: POTASSIUM CHLORIDE 20 MEQ TABLET PO ONE (15:00)
[2022-06-03] MEDS: QUEtiapine XR 50 MG TABLET PO SCH (21:54)
[2022-06-04] MEDS: methylPREDNISolone SOD SUC 125 MG/2 ML VIAL IV SCH ×4 (03:11→20:30)
[2022-06-04] MEDS: ALBUTEROL/IPRATROPIUM 3 ML NEB RESP TX SCH ×6 (03:25→22:58)
[2022-06-04 05:05] LABS: Basophils % 0.1 % (0.0-0.8); Hematocrit 38.6 VOL% (35.7-47.0); Hemoglobin 12.6 GM/DL (12.0-16.0); Immature Granulocytes Absolute 0.21 #; Lymphocytes # 1.5 10*3/uL (1.4-4.0); Lymphocytes % 7.2 % (21.3-54.2); Mean Corpuscular HGB Conc 32.6 GM/DL (32-36); Mean Corpuscular Volume 96.5 FL (87-102); Mean Platelet Volume 10.2 FL (9.6-12.0); Monocytes # 0.5 10*3/uL (0.11-0.8); Monocytes % 2.7 % (1.7-12.7); Platelet Count 340 T/CUMM (130-400); Red Cell Distribution Width 13.2 % (9.3-17.3); White Blood Count 20.3 T/CUMM (4-12)
[2022-06-04 05:20] LABS: Calcium 9.6 MG/DL (8.5-10.1); Potassium 4.2 MMOL/L (3.5-5.1)
[2022-06-04 06:03] LABS: Lymphocytes 6 % (20-55); Platelet Estimate Adequate; Total Cells Counted 100
[2022-06-04] MEDS ORDERED: PROMETHAZINE 25 MG/1 ML VIAL IM ONE (07:30)
[2022-06-04] MEDS ORDERED: MEPERIDINE 50 MG/1 ML VIAL IM ONE (07:30)
[2022-06-04] MEDS ORDERED: MIDAZOLAM 2 MG/2 ML VIAL IV ONE (08:00)
[2022-06-04] MEDS ORDERED: LIDOCAINE 1% 20 ML VIAL MISC INJ ONE (08:00)
[2022-06-04] MEDS ORDERED: LIDOCAINE 2% VISCOUS 100 ML BOTTLE SWISH/SPIT ONE (08:00)
[2022-06-04] MEDS ORDERED: LIDOCAINE 2% 20 ML VIAL RESP TX ONE (08:00)
[2022-06-04] MEDS: cefTRIAXone 1,000 MG in SODIUM CHLORIDE 0.9% 100 ML IV SCH (09:16)
[2022-06-04] MEDS: PANTOPRAZOLE 40 MG TABLET PO SCH (10:13)
[2022-06-04] MEDS: APIXABAN 2.5 MG TABLET PO SCH ×2 (10:13→20:29)
[2022-06-04] MEDS: DOCUSATE SODIUM 100 MG CAPSULE PO SCH ×2 (10:13→20:29)
[2022-06-04] MEDS: AZITHROMYCIN INJ 500 MG in SODIUM CHLORIDE 0.9% 250 ML IV SCH (10:14)
[2022-06-04] MEDS: QUEtiapine XR 50 MG TABLET PO SCH (20:29)
[2022-06-05] MEDS: methylPREDNISolone SOD SUC 125 MG/2 ML VIAL IV SCH ×2 (03:37→09:15)
[2022-06-05] MEDS: ALBUTEROL/IPRATROPIUM 3 ML NEB RESP TX SCH ×3 (04:33→07:43)
[2022-06-05] MEDS: cefTRIAXone 1,000 MG in SODIUM CHLORIDE 0.9% 100 ML IV SCH (09:14)
[2022-06-05] MEDS: PANTOPRAZOLE 40 MG TABLET PO SCH (09:14)
[2022-06-05] MEDS: APIXABAN 2.5 MG TABLET PO SCH (09:14)
[2022-06-05] MEDS: DOCUSATE SODIUM 100 MG CAPSULE PO SCH (09:14)
[2022-06-05] MEDS ORDERED: BUDESONIDE/FORMOTEROL 160-4.5 INHALER 6 GM INH SCH (10:00)
[2022-06-05] MEDS: AZITHROMYCIN INJ 500 MG in SODIUM CHLORIDE 0.9% 250 ML IV SCH (10:22)
[2022-06-05 12:13] VITALS: BP 158/93
== END 2022-06-05 13:10 | disposition home or self-care (01) ==
LOC: N.ED 11:43 → N.2E 11:43
PROVIDERS: ADMIT Family Medicine; ATTEND Family Medicine